=== PATIENT | male | born 1985 | race American Indian/Alaskan Native ===

== ENCOUNTER 2019-01-17 00:04 | Emergency (ER) | payer OTHER ==
[2019-01-17] MEDS ORDERED: ASPIRIN PO ONE (00:10)
[2019-01-17 00:11] VITALS: BP 128/87
[2019-01-17 00:35] LABS: Basophils # (Auto) 0.1 K/mm3 (0.0-0.1); Eosinophils # (Auto) 0.1 K/mm3 (0.0-0.4); Eosinophils % (Auto) 1.4 % (0.0-4.3); Hematocrit 41.1 % (35.5-45.6); Hemoglobin 14.1 gm/dl (11.8-15.2); Lymphocytes # (Auto) 2.8 K/mm3 (1.2-5.4); Lymphocytes % (Auto) 45.7 % (13.4-35.0); Mean Corpuscular HGB Conc 34 % (32-34); Mean Corpuscular Volume 91 fl (84-94); Monocytes # (Auto) 0.5 K/mm3 (0.0-0.8); Monocytes % (Auto) 7.4 % (0.0-7.3); Platelet Count 169 K/mm3 (140-440); Red Blood Count 4.49 M/mm3 (3.65-5.03)
--- NOTE | 2019-01-17 00:49 | XRay Report ---
CHEST 2 VIEWS INDICATION / CLINICAL INFORMATION: MAIN: mid Chest Pain, some sly. COMPARISON: None available. FINDINGS: SUPPORT DEVICES: None. HEART / MEDIASTINUM: No significant abnormality. LUNGS / PLEURA: No significant pulmonary or pleural abnormality. No pneumothorax. ADDITIONAL FINDINGS: No significant additional findings. IMPRESSION: 1. No significant abnormality. Signer Name: Nela Ramirez MD Signed: 01/16/2019 11:45 PM Workstation Name: [id number]
[2019-01-17 00:56] LABS: BUN/Creatinine Ratio 15; Blood Urea Nitrogen 18 mg/dL (9-20); Calcium 9.3 mg/dL (8.4-10.2); Hemolysis Index 14
== END 2019-01-17 02:55 | disposition left against medical advice (07) ==
LOC: ED 00:04
DX: R07.89 Other chest pain (principal); Z53.21 Procedure and treatment not carried out due to patient leaving prior to being seen by health care provider
CPT/HCPCS: 36415; 71046; 80048; 84484; 85025; 93005; 93010

== ENCOUNTER 2020-05-23 10:22 | Emergency (ER) | payer SELFPAY ==
[2020-05-23 10:45] VITALS: BP 124/74
--- NOTE | 2020-05-23 10:45 | Event Note ---
ED Screening Note Date of service: 05/23/20 Time: 10:44 ED Screening Note: Patient presents with complaints of shortness of breath and headache intermittently x1 week Denies history of asthma or other past medical history Denies chest pain This initial assessment/diagnostic orders/clinical plan/treatment(s) is/are subject to change based on patients health status, clinical progression and re- assessment by fellow clinical providers in the ED. Further treatment and workup at subsequent clinical providers discretion. Patient/guardian urged not to elope from the ED as their condition may be serious if not clinically assessed and managed. Initial orders include: Labs Chest x-ray
--- NOTE | 2020-05-23 11:18 | XRay Report ---
CHEST 2 VIEWS INDICATION / CLINICAL INFORMATION: shortness of breath. COMPARISON: Chest x-ray 01/17/2019 FINDINGS: SUPPORT DEVICES: None. HEART / MEDIASTINUM: No significant abnormality. LUNGS / PLEURA: No significant pulmonary or pleural abnormality. No pneumothorax. ADDITIONAL FINDINGS: No significant additional findings. IMPRESSION: 1. No acute findings. Signer Name: Farhan Omer MD Signed: 05/23/2020 11:13 AM Workstation Name: [id number]
--- NOTE | 2020-05-23 11:34 | Emergency Department Report ---
ED General Adult HPI - General Chief complaint: Upper Respiratory Infection Stated complaint: SOB/HEADACHE Time Seen by Provider: 05/23/20 10:42 Source: patient Mode of arrival: Ambulatory Limitations: No Limitations - History of Present Illness Initial comments: The patient was evaluated in the emergency department for symptoms described in the history of present illness. He/she was evaluated in the context of the global COVID-19 pandemic, which necessitated consideration that the patient might be at risk for infection with the virus that causes COVID-19. Institutional protocols and algorithms that pertain to the evaluation of patients at risk for COVID-19 are in a state of rapid change based on information released by regulatory bodies including the CDC and federal and state organizations. These policies and algorithms were followed during the patient's care in the emergency department. Please note that these policies, procedures and recommendations changed on a rapid basis. 34-year-old -[place] Citizen male presents to the emergency room complaining of a headache that is off and on for 1 week in shortness of breath. Patient denies any cough no fever no diarrhea no loss of taste or smell. Patient states that the headache improves when he takes medication. Last ibuprofen was yesterday 400 mg. Patient states he takes it every other day as needed for headache. Patient reports he been using nasal spray Mucinex spray for nasal congestion. He denies any runny nose no fever no chills no nausea no vomiting no diarrhea. Patient denies any history of asthma. Onset/Timin -: week(s) Location: eyes Severity scale (0 -10): 7 Quality: aching Consistency: intermittent Improves with: medication Associated Symptoms: headaches. denies: chest pain, cough, loss of appetite, malaise, nausea/vomiting, shortness of breath Treatments Prior to Arrival: none - Related Data Previous Rx's Medication Instructions Recorded Last Taken Type Acetaminophen/Codeine [Tylenol #3] 1 tab PO Q6H PRN #16 tab 03/15/16 Unknown Rx Sulfamethoxazole/Trimethoprim 1 each PO BID #20 tablet 03/15/16 Unknown Rx [Bactrim DS TAB] Allergies Allergy/AdvReac Type Severity Reaction Status Date / Time No Known Allergies Allergy Verified 01/17/19 00:09 ED Review of Systems ROS: Stated complaint: SOB/HEADACHE Other details as noted in HPI Comment: All other systems reviewed and negative ED Past Medical Hx - Past Medical History Previous Medical History?: No - Surgical History Past Surgical History?: No - Social History Smoking Status: Current Every Day Smoker Substance Use Type: None - Medications Home Medications: Home Medications Medication Instructions Recorded Confirmed Last Taken Type Acetaminophen/Codeine [Tylenol #3] 1 tab PO Q6H PRN #16 tab 03/15/16 Unknown Rx Sulfamethoxazole/Trimethoprim 1 each PO BID #20 tablet 03/15/16 Unknown Rx [Bactrim DS TAB] ED Physical Exam - General Limitations: No Limitations General appearance: alert, in no apparent distress - Head Head exam: Present: atraumatic, normocephalic - Eye Eye exam: Present: normal appearance - ENT ENT exam: Present: mucous membranes dry - Neck Neck exam: Present: normal inspection - Respiratory Respiratory exam: Present: normal lung sounds bilaterally. Absent: respiratory distress - Cardiovascular Cardiovascular Exam: Present: regular rate, normal rhythm. Absent: systolic murmur, diastolic murmur, rubs, gallop - GI/Abdominal GI/Abdominal exam: Present: soft, normal bowel sounds - Neurological Exam Neurological exam: Present: alert, oriented X3 - Expanded Neurological Exam Expanded Patient oriented to: Present: person, place, time Cranial nerves: EOM's Intact: Normal, Gag Reflex: Normal, Tongue Deviation: Normal, Nystagmus: Normal, Facial Sensation: Normal, Facial Palsy with Forehead Movement: Normal, Facial Palsy without Forehead Movement: Normal Cerebellar function: Finger to Nose: Normal, Heel to Coy: Normal, Romberg: Normal Upper motor neuron: Madhu Neglect: Normal, Pronator Drift: Normal, Sensory Extinction: Normal Sensory exam: Upper Extremity Light Touch: Normal, Upper Extremity Pin Prick: Normal, Upper Extremity Temperature: Normal, UE 2 Point Discrimination: Normal, Lower Extremity Light Touch: Normal, Lower Extremity Pin Prick: Normal, Lower Extremity Temperature: Normal, LE 2 Point Discrimination: Normal Motor strength exam: RUE: 4, LUE: 4, RLE: 4, LLE: 4 Best Eye Response ([place]): (4) open spontaneously Best Motor Response ([place]): (6) obeys commands Best Verbal Response ([place]): (5) oriented Pineda Total: 15 - Psychiatric Psychiatric exam: Present: normal affect, normal mood - Skin Skin exam: Present: warm, dry, intact, normal color. Absent: rash ED Course Vital Signs 05/23/20 05/23/20 10:42 11:26 Temperature 98.0 F Pulse Rate 81 Respiratory 18 18 Rate Blood Pressure 124/74 [Right] O2 Sat by Pulse 97 99 Oximetry ED Medical Decision Making - Lab Data Result diagrams: 05/23/20 11:06 05/23/20 11:06 - Radiology Data Radiology results: report reviewed Patient: MICHELLE JUARES MR#: [id number] : 1985 Acct:[id number] Age/Sex: 34 / M ADM Date: 05/23/20 Loc: ED Attending Dr: Ordering Physician: SUZIE NÚÑEZ Date of Service: 05/23/20 Procedure(s): XR chest routine 2V Accession Number(s): [id number] cc: SUZIE NÚÑEZ Fluoro Time In Minutes: CHEST 2 VIEWS INDICATION / CLINICAL INFORMATION: shortness of breath. COMPARISON: Chest x-ray 01/17/2019 FINDINGS: SUPPORT DEVICES: None. HEART / MEDIASTINUM: No significant abnormality. LUNGS / PLEURA: No significant pulmonary or pleural abnormality. No pneum othorax. ADDITIONAL FINDINGS: No significant additional findings. IMPRESSION: 1. No acute findings. Signer Name: Farhan Omer MD Signed: 05/23/2020 11:13 AM Workstation Name: [id number] Transcribed By: TL Dictated By: Farhan Omer MD Electronically Authenticated By: Farhan Omer MD Signed Date/Time: 05/23/201112 DD/ 12 TD/TT: - Medical Decision Making 34-year-old -[place] Citizen male presents to the emergency room complaining of a headache that is off and on for 1 week in shortness of breath. Patient denies any cough no fever no diarrhea no loss of taste or smell. Patient states that the headache improves when he takes medication. Last ibuprofen was yesterday 400 mg. Patient states he takes it every other day as needed for headache. Patient reports he been using nasal spray Mucinex spray for nasal congestion. He denies any runny nose no fever no chills no nausea no vomiting no diarrhea. Patient denies any history of asthma. CBC CMP and chest x-ray was ordered by triage provider. Blood work is stable chest x-ray shows no acute abnormalities. Patient can try taking [id number] Flonase and Excedrin migraine. Critical care attestation.: If time is entered above; I have spent that time in minutes in the direct care of this critically ill patient, excluding procedure time. ED Disposition Clinical Impression: Headache Qualifiers: Headache type: tension-type Headache chronicity pattern: acute headache Intractability: intractable Qualified Code(s): G44.201 - Tension-type headache, unspecified, intractable Disposition: DC-01 TO HOME OR SELFCARE Is pt being admited?: No Does the pt Need Aspirin: No Condition: Stable Instructions: Tension Headache, Adult, [id number] Additional Instructions: Blood work is within normal limits chest x-ray shows no acute abnormalities. I recommend [id number] Excedrin Migraine and Flonase nasal spray. Follow-up with a primary care provider. Referrals: JUAN CARLOS OSORIO MD [Staff Physician] - 3-5 Days Forms: Work/School Release Form(ED)
[2020-05-23 11:39] LABS: Hematocrit 42.7 % (35.5-45.6); Hemoglobin 14.4 gm/dl (11.8-15.2); Mean Corpuscular HGB Conc 34 % (32-34); Mean Corpuscular Volume 91 fl (84-94); Platelet Count 153 K/mm3 (140-440); Red Cell Distribution Width 14.4 % (13.2-15.2)
[2020-05-23 12:00] LABS: Alanine Aminotransferase 29 units/L (7-56); BUN/Creatinine Ratio 12; Blood Urea Nitrogen 13 mg/dL (9-20); Calcium 8.7 mg/dL (8.4-10.2); Hemolysis Index 16
[2020-05-23 12:20] LABS: Total Cells Counted 100
[2020-05-23 12:22] LABS: Large Platelets Few; Platelet Estimate Consistent w Auto; RBC Morphology Normal
[2020-05-23] MEDS ORDERED: ACETAMINOPHEN 500 MG TAB PO ONE (12:22)
== END 2020-05-23 13:08 | disposition home or self-care (01) ==
LOC: ED 10:22
DX: R51.9 Headache, unspecified (principal); F17.200 Nicotine dependence, unspecified, uncomplicated
CPT/HCPCS: 36415; 71046; 80053; 85007; 85025; 99283

== ENCOUNTER 2020-08-10 03:01 | Emergency (ER) | payer SELFPAY ==
--- NOTE | 2020-08-10 05:21 | Event Note ---
ED Screening Note Date of service: 08/10/20 Time: 05:19 ED Screening Note: This initial assessment/diagnostic orders/clinical plan/treatment(s) is/are subject to change based on patients health status, clinical progression and re- assessment by fellow clinical providers in the ED. Further treatment and workup at subsequent clinical providers discretion. Patient/guardian urged not to elope from the ED as their condition may be serious if not clinically assessed and managed. Initial orders include: Patient states few hours ago he was unable to void. While waiting in the emergency room he was able to void freely with no pain or discomfort and no abnormal looking urine. He denies any fever no.abdominal pain no penile discharge no scrotal or penile pain. Patient in no acute distress
[2020-08-10 06:30] LABS: Bacteria,Urine 1+ /HPF (Negative); Bilirubin,Urine NEG (Negative); Blood,Urine NEG (Negative); Color,Urine Yellow (Yellow); Mucus,Urine 1+ /HPF; Protein,Urine <15 mg/dL mg/dL (Negative); Urobilinogen,Urine < 2.0 mg/dL (<2.0)
--- NOTE | 2020-08-10 07:33 | Emergency Department Report ---
ED Male HPI - General Chief complaint: Urogenital-Male Stated complaint: NOT ABLE TO URINATE Time Seen by Provider: 08/10/20 07:28 Source: patient Mode of arrival: Ambulatory Limitations: No Limitations - History of Present Illness Initial comments: 35-year-old male with no significant past medical history presents to the ER today complaining of difficulty urinating. Onset was last night around 10 PM. Patient states that he felt the urge to urinate but was unable to. He states that by the time he got to the ER he was able to urinate completely and this occurred twice since he has been here in the ER (which has been for about 4 hrs). He denies any dysuria, frequency, or hematuria. He denies any the penile discharge, testicular pain or swelling. He denies any abdominal pain or low back pain. He denies any fever, chills, nausea or vomiting. He denies any history of prostate issues or similar symptoms in the past. MD Complaint: other (Unable to urinate) -: Sudden (last night around 10am) - Related Data Previous Rx's Medication Instructions Recorded Last Taken Type Acetaminophen/Codeine [Tylenol #3] 1 tab PO Q6H PRN #16 tab 03/15/16 Unknown Rx Sulfamethoxazole/Trimethoprim 1 each PO BID #20 tablet 08/10/20 Unknown Rx [Bactrim DS TAB] Allergies Allergy/AdvReac Type Severity Reaction Status Date / Time No Known Allergies Allergy Verified 01/17/19 00:09 ED Review of Systems ROS: Stated complaint: NOT ABLE TO URINATE Other details as noted in HPI Comment: All other systems reviewed and negative Constitutional: denies: chills, fever Respiratory: denies: cough, shortness of breath, wheezing Cardiovascular: denies: chest pain, palpitations Gastrointestinal: denies: abdominal pain, nausea, vomiting, diarrhea Genitourinary: urgency, other (Difficulty urinating). denies: dysuria, frequency, hematuria, discharge, testicular pain, testicular mass Musculoskeletal: denies: back pain Skin: denies: rash, lesions Neurological: denies: headache, weakness, paresthesias ED Past Medical Hx - Past Medical History Previous Medical History?: No - Surgical History Past Surgical History?: No - Social History Smoking Status: Current Every Day Smoker Substance Use Type: None - Medications Home Medications: Home Medications Medication Instructions Recorded Confirmed Last Taken Type Acetaminophen/Codeine [Tylenol #3] 1 tab PO Q6H PRN #16 tab 03/15/16 Unknown Rx Sulfamethoxazole/Trimethoprim 1 each PO BID #20 tablet 08/10/20 Unknown Rx [Bactrim DS TAB] ED Physical Exam - General Limitations: No Limitations General appearance: alert, in no apparent distress - Head Head exam: Present: atraumatic, normocephalic, normal inspection - Respiratory Respiratory exam: Present: normal lung sounds bilaterally. Absent: respiratory distress - Cardiovascular Cardiovascular Exam: Present: regular rate, normal rhythm. Absent: systolic murmur, diastolic murmur, rubs, gallop - GI/Abdominal GI/Abdominal exam: Present: soft. Absent: distended, tenderness - Back Exam Back exam: Present: full ROM - Neurological Exam Neurological exam: Present: alert, oriented X3 - Psychiatric Psychiatric exam: Present: normal affect, normal mood - Skin Skin exam: Present: intact ED Course Vital Signs 08/10/20 08/10/20 08/10/20 05:14 07:42 07:43 Temperature 98.2 F 98.4 F Pulse Rate 85 79 Respiratory 20 18 Rate Blood Pressure 127/77 123/68 O2 Sat by Pulse 98 96 Oximetry Critical care attestation.: If time is entered above; I have spent that time in minutes in the direct care of this critically ill patient, excluding procedure time. ED Disposition Clinical Impression: UTI (urinary tract infection) Disposition: - TO HOME OR SELFCARE Is pt being admited?: No Does the pt Need Aspirin: No Condition: Stable Instructions: Urinary Tract Infection, Adult, [id number] Additional Instructions: I recommend that you start antibiotics today and take it to completion. I encouraged that you drink lots of water. Follow-up with the primary care doctor given on your discharge instructions. Return to the ER if your symptoms worsens or changes in any way. Prescriptions: Sulfamethoxazole/Trimethoprim [Bactrim DS TAB] 1 each PO BID #20 tablet Referrals: TYRONE CONNELL MD [Primary Care Provider] - 3-5 Days Time of Disposition: 07:36
[2020-08-10 07:43] VITALS: BP 123/68
== END 2020-08-10 07:45 | disposition home or self-care (01) ==
LOC: ED 03:01
DX: N39.0 Urinary tract infection, site not specified (principal); F17.200 Nicotine dependence, unspecified, uncomplicated; Z79.899 Other long term (current) drug therapy
CPT/HCPCS: 81001; 87086